=== PATIENT | female | born 1950 | race Two or more races ===

== ENCOUNTER 2021-03-13 12:54 | Emergency (ER) | payer MEDICAID ==
[~2021-03-13] VITALS: Ht 157.5 cm; Wt 90.7 kg
--- NOTE | 2021-03-13 13:05 | NUR ---
PT [facility] C/O LUE/SHOULDER AND LOWER BACK PAIN S/P GLF TRYING TO SIT IN THE EDGE OF THE BED THIS MORNING AT AROUND 3AM. STATES SHE UNABLE TO STAND UP AND WAITED TILL MORNING FOR HELP. PATIENT PLACED ON MONITOR. VSS LEAD SYSTEMS ARCHITECT. AWAITING MD [place]
--- NOTE | 2021-03-13 13:22 | NUR ---
DR LEVI AT BEDSIDE FOR EVAL.
[2021-03-13] MEDS ORDERED: ACETAMINOPHEN ES 500 MG TABLET ONE ×2 (14:19→14:24)
--- NOTE | 2021-03-13 14:24 | NUR ---
PACK ROOM OPERATOR AT BEDSIDE FOR X-RAY.
[2021-03-13] MEDS ORDERED: ACETAMINOPHEN ES 500 MG TABLET PO ONE (14:30)
--- NOTE | 2021-03-13 16:44 | NUR ---
DAUGHTER JESSICA ED. 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
[2021-03-13 17:27] LABS: BILIRUBIN,URINE NEGATIVE (NEGATIVE); COLOR,URINE YELLOW (YELLOW); LEUKOCYTE ESTERASE ,URINE SMALL (NEGATIVE); NITRITE, URINE NEGATIVE (NEGATIVE); PH,URINE 5.5 (5.0-8.0); PROTEIN,URINE TRACE mg/dl (NEGATIVE); UGLUCOSE >=1000 mg/dL (NEGATIVE); UROBILINOGEN,URINE 0.2 EU/dL (0.2)
[2021-03-13 17:45] LABS: BACTERIA,URINE Many /HPF (None Seen); SQUAMOUS EPITHELIAL CELL,UR Few /HPF (None Seen)
[2021-03-13 17:46] LABS: WBC,URINE 21-50 /HPF (0-3)
[2021-03-13] MEDS ORDERED: ACET-2605 PO (17:49)
[2021-03-13] MEDS ORDERED: CEPH500C2 PO (17:50)
[2021-03-13 18:09] VITALS: BP 145/76
--- NOTE | 2021-03-13 18:09 | NUR ---
Patient discharged to home in stable condition. Written and verbal after care instructions given. Patient verbalizes understanding of instruction.
== END 2021-03-13 18:09 | disposition home or self-care (01) ==
LOC: ER 12:59
DX: M54.50 Low back pain, unspecified (principal); M54.2 Cervicalgia; M48.36 Traumatic spondylopathy, lumbar region; I10 Essential (primary) hypertension; E11.9 Type 2 diabetes mellitus without complications; Z87.440 Personal history of urinary (tract) infections; Z88.2 Allergy status to sulfonamides; Z79.1 Long term (current) use of non-steroidal anti-inflammatories (NSAID)
CPT/HCPCS: 70450-TC; 72050-TC; 72100-TC; 72125-TC; 72131-TC; 73030-TC; 81001; 87086-TC; 87186-TC